=== PATIENT | male | born 1955 | race Caucasian/White ===

== ENCOUNTER 2019-01-18 21:06 | Observation (INO) | payer BC ==
[~2019-01-18] VITALS: Ht 172.7 cm; Wt 84.5 kg
--- NOTE | ~2019-01-18 | HEMODYNAMI ---
PATIENT:ANDREA NGUYEN MEDICAL RECORD: [id number] : 53 LOCATION:[facility] D.[facility] ADMISSION DATE: 01/18/19 Generatedon:01/19/20198:35 Patient name: ANDREA NGUYEN Patient #: [id number] SSN: DO B: 1955 Date of study: 01/19/2019 Page: Of Hemodynamic Procedure Report Patient Data Patient Demographics Procedure consent was obtained First Name: ANDREA Gender: Male Last Name: WENDY : 1955 Patient #: [id number] Age: 63 year(s) Race: Unknown Additional ID: [id number] Contact details [address]: [address] [place] [address] State: [place] City: [place] Zip code: [address] Admission Admission Data Admission Date: 01/18/2019 Admission Time: 22:42 Room #: [facility] Procedure Procedure Types Cath Procedure Diagnostic Procedure LHC LH w/Coronaries PCI Procedure Coronary Stent Coronary Stent Initial x2 Procedure Description Procedure Date Procedure Date: 01/19/2019 Procedure Start Time: 8:14 Procedure End Time: 8:31 Procedure Staff Name Function Neal Rich MD Performing Physician Justin Mcdowell RN Nurse Taryn Villa RT Scrub Mike Hwang RT Monitor Procedure Data Cath Procedure Fluoroscopy Diagnostic fluoroscopy Total fluoroscopy Time: 3.5 time: 3.5 min min Diagnostic fluoroscopy Total fluoroscopy dose: 553 dose: 553 mGy mGy Contrast Material Contrast Material Type Amount (ml) Isovue 300 72 Entry Location Entry Primary Successful Side Size Upsize Upsize Entry Closure Succes sful Closure Location (Fr) 1 (Fr) 2 (Fr) Remarks Device Remarks Femoral Right 6 Fr Exoseal artery Short Estimated blood loss: 10 ml Diagnostic catheters Device Type Used For End Catheter Placement MULTIPACK Pigtail 5 Fr Procedure catheter MULTIPACK JL 4.0 5Fr Procedure catheter MULTIPACK 3DRC 5Fr Procedure catheter Procedure Complications No complications Procedure Medications Medication Administration Route Dosage Benadryl I.V. 50 mg Oxygen etCO2 Nasal cannula 2 l/min Lidocaine 2% added to field 20 Heparin Flush Bag added to field 2 bags (1000units/500ml NS) 0.9% NaCl I.V. 100 ml/hr Versed I.V. 1 mg Fentanyl I.V. 50 mcg Versed I.V. 1 mg Fentanyl I.V. 50 mcg Heparin Bolus I.V. 4000 units Integrilin (Bolus I.V. 7.9 ml 2mg/ml) Plavix P.O. 75 mg Hemodynamics Rest Heart Rate: 84 (bpm) Snapshots Pre Cath Intra NCS Post Cath Vital Signs Time Heart Resp SPO2 etCO2 NIBP (mmHg) Rhythm Pain Sedation Rate (ipm) (%) (mmHg) Status Level (bpm) 8:10:18 81 16 99 32.7 148/95(129) NSR 0 (11) 10(A) , No pain 8:14:30 89 11 92 0 114/86(108) NSR 0 (11) 10(A) , No pain 8:18:35 89 12 95 28.8 132/95(119) NSR 0 (11) 9(A) , No pain 8:22:47 90 11 93 15.2 137/91(124) NSR 0 (11) 9(A) , No pain 8:28:05 97 12 92 18.2 139/85(126) NSR 0 (11) 9(A) , No pain 8:32:21 88 15 98 20.5 156/105(131) NSR 0 (11) 10(A) , No pain Medications Time Medication Route Dose Verified Delivered Reason Notes Effectiveness by by 8:09:47 Benadryl I.V. 50 mg Neal Buffie used for Hilario Mcdowell RN procedure 8:10:59 Oxygen etCO2 2 Neal Buffie used for Nasal l/min Hilario Mcdowell RN procedure cannula 8:11:07 Lidocaine 2% added 20ml Neal Neal for local to vial Hilario Rich MD anesthetic field 8:11:13 Heparin Flush added 2 Neal Neal used for Bag to bags Hilario Rich MD procedure (1000units/500ml field NS) 8:11:21 0.9% NaCl I.V. 100 Neal Buffie Per physician ml/hr Hilario Mcdowell RN 8:13:20 Versed I.V. 1 mg Nealjohn Allenie for sedation Hilario Mcdowell RN 8:13:26 Fentanyl I.V. 50 Neal Anderson for sedation mcg Hilario Mcdowell RN 8:15:51 Versed I.V. 1 mg Neal Anderson for sedation Hilario Mcdowell RN 8:15:54 Fentanyl I.V. 50 Neal Anderson for sedation mcg Hilario Mcdowell RN 8:18:14 Heparin Bolus I.V. 4000 Neal Anderson for verifi ed units Hilario Mcdowell RN anticoagulation with dr rich 8:20:09 Integrilin I.V. 7.9 Neal Anderson for Wasted (Bolus 2mg/ml) ml Hilario Mcdowell RN antiplatelet 2.1 ml therapy of vial 8:30:35 Plavix P.O. 75 mg Neal Anderson for Hilario Mcdowell RN antiplatelet therapy Procedure Log Time Note 7:44:34 Signed procedure consent form obtained from patient. 7:44:35 Diagnostic Cath status Elective 7:44:36 Time tracking: Regular hours (M-F 7:00 - 5:00) 7:44:40 Plan of Care:Hemodynamics will remain stable., Cardiac rhythm will remain stable., Comfort level will be maintained., Respiratory function will remain adequate., Patient/ family verbilizes understanding of procedure., Procedure tolerated without complication., Recovers from procedure without complications.. 7:44:48 Justin Mcdowell RN sent for patient. Start room use. 8:00:20 Patient received from CVICU to CCL 1 Alert and oriented. Tansferred to table in Supine position. 8:00:21 Warm blankets applied, and rocio hugger turned on for patient comfort. 8:00:21 Correct patient and procedure confirmed by team. 8:00:22 ECG and BP/O2 sat monitors applied to patient. 8:09:06 Vital chart was started 8:09:47 Benadryl 50 mg I.V. was administered by Justin Mcdowell RN; used for procedure; 8:10:02 Baseline sample Acquired. 8:10:02 Full Disclosure recording started 8:10:06 Rhythm: sinus rhythm 8:10:13 H&P Date Dictated: 01/18/2019 Within 30 days and on chart., H&P Addendum completed by physician on day of procedure. (MUST COMPLETE FOR ALL OUTPATIENTS). 8:10:14 Pre-procedure instructions explained to patient. 8:10:14 Pre-op teaching completed and patient verbalized understanding. 8:10:37 Family in patients room. 8:10:39 Patient NPO since Midnight. 8:10:41 Is the patient allergic to Iodine/contrast media? No. 8:10:50 Is patient on blood thinner?Yes 8:10:53 ACC The patient was administered the following blood thiners within the last 24 hours: ACCPlavix 8:10:55 Patient diabetic? No. 8:10:58 Previous problem with sedation/anesthesia? No ? 8:10:59 Oxygen 2 l/min etCO2 Nasal cannula was administered by Justin Mcdowell RN; used for procedure; 8:10:59 Snore? Yes 8:11:00 Sleep apnea? No 8:11:01 Deviated septum? No 8:11:01 Opens mouth fully? Yes 8:11:02 Sticks out tongue? Yes 8:11:04 Airway obstruction? No ? 8:11:06 Dentures? No ? 8:11:07 Lidocaine 2% 20ml vial added to field was administered by Neal Rich MD; for local anesthetic; 8:11:09 Pre procedure: right dorsailis pedis pulse 1+ Palpable, but thready & weak; easily obliterated 8:11:12 Modified Christofer's test Ulnar < 7 seconds 8:11:13 Heparin Flush Bag (1000units/500ml NS) 2 bags added to field was administered by Neal Rich MD; used for procedure; 8:11:14 Patient pain scale 0/10 ?. 8:11:21 0.9% NaCl 100 ml/hr I.V. was administered by Justin Mcdowell RN; Per physician; 8:11:21 IV patent on arrival in left antecubital with 0.9% NaCl at [facility]. 8:11:23 Lab results completed and on chart. 8:11:28 Right groin area was prepped with chlora-prep and draped in sterile fashion 8:11:34 Alarms reviewed by R. N. 8:11:35 Sharps counted by scrub and verified by R.N. 8:12:06 --------ALL STOP TIME OUT------ 8:12:06 Final Timeout: patient, procedure, and site verified with staff and physician. All members of the team are in agreement. 8:12:08 Right groin site verified by team. 8:12:13 Fire Safety Assessment: A--An alcohol-based skin anteseptic being used preoperatively., C--Open oxygen or nitrous oxide is being used., D--An ESU, laser, or fiber-optic light is being used. 8:12:16 Physical assessment completed. ASA score P 2 - A patient with mild systemic disease as per Neal Rich MD. 8:12:19 Sedation plan: IV Moderate Sedation Medication:Versed, Fentanyl 8:13:20 Versed 1 mg I.V. was administered by Justin Mcdowell RN; for sedation; 8:13:26 Fentanyl 50 mcg I.V. was administered by Justin Mcdowell RN; for sedation; 8:14:35 Use device set Femoral Dx 8:14:40 Procedure started. 8:14:53 Local anesthetic to right femoral artery with Lidocaine 2% by Neal Rich MD.INITIAL ACCESS ONLY 8:15:04 A 6 Fr Short sheath was inserted into the Right Femoral artery 8:15:08 ACIST Syringe (28159) opened to sterile field. 8:15:09 Bag Decanter (2002S) opened to sterile field. 8:15:10 Medline Cath Pack ([id number]) opened to sterile field. 8:15:12 ACIST Hand Control (71525) opened to sterile field. 8:15:13 ACIST Manifold (74863) opened to sterile field. 8:15:20 Tegaderm 4 x 4 (1626W) opened to sterile field. 8:15:22 DIAGNOSTIC Multipack 5Fr catheter set (XM9928) opened to sterile field. 8:15:25 DIAGNOSTIC WIRE .035 260cm J wire (386155) opened to sterile field. 8:15:33 SHEATH 6FR [place] (ETP073) opened to sterile field. 8:15:42 A MULTIPACK Pigtail 5 Fr catheter was advanced over the wire and used for Procedure. 8:15:50 LV angiography performed. 8:15:51 Versed 1 mg I.V. was administered by Justin Mcdowell RN; for sedation; 8:15:51 LV gram done using BRISCOE 8:15:54 Fentanyl 50 mcg I.V. was administered by Justin Mcdowell RN; for sedation; 8:15:56 EF : 50 % 8:16:01 Injector settings: Ml/sec: 10, Volume: 20, 8:16:10 A MULTIPACK JL 4.0 5Fr catheter was advanced over the wire and used for Procedure. 8:16:21 LCA angiography performed. 8:16:32 Catheter removed. 8:17:18 A MULTIPACK 3DRC 5Fr catheter was advanced over the wire and used for Procedure. 8:17:22 RCA angiography performed. 8:17:24 Catheter removed. 8:17:53 Use device set HILARIO PCI 8:17:57 GUIDE 6FR AR 2.0 catheter ([id number]) opened to sterile field. 8:18:00 INFLATOR Merit BasixCompak (XO2813) opened to sterile field. 8:18:04 CHOICE PT Extra Support 182cm wire ([id number]) opened to sterile field. 8:18:14 Heparin Bolus 4000 units I.V. was administered by Justin Mcdowell RN; for anticoagulation; verified with dr rich 8:18:50 6 Fr AR 2 guide catheter was inserted over the wire 8:19:23 CPTXS wire advanced. 8:20:09 Integrilin (Bolus 2mg/ml) 7.9 ml I.V. was administered by Justin Mcdowell RN; for antiplatelet therapy; Wasted 2.1 ml of vial 8:20:09 Wire advanced across lesion. 8:21:10 Inflate balloon Inflation number: 1 A EUPHORA 2.5 x 20 Balloon ([id number]) was prepped and advanced across the Mid RCA, then inflated to 17 AGUSTIN for 0:10 (min:sec). 8:21:22 Inflation number: 2 The EUPHORA 2.5 x 20 Balloon ([id number]) was reinflated across the Mid RCA, to 17 AGUSTIN for 0:10 (min:sec). 8:22:33 Balloon removed over the wire. 8:23:06 Place stent Inflation Number: 3 A INTEGRITY RX 2.75 x 26 stent ([id number]) was prepped and advanced across the Mid RCA. The stent was deployed at 17 AGUSTIN for 0:10 (min:sec). 8:23:24 Stent catheter was removed intact over wire. 8:23:25 Wire removed. 8:23:26 Guide catheter removed. 8:24:37 GUIDE 6FR XBC 3.5 ([id number]) opened to sterile field. 8:24:46 6 Fr XBC guide catheter was inserted over the wire 8:24:53 CPTXS wire advanced. 8:25:47 Wire advanced across lesion. 8:27:11 Place stent Inflation Number: 1 A INTEGRITY RX 3.5 x 12 stent ([id number]) was prepped and advanced across the Prox CX. The stent was deployed at 17 AGUSTIN for 0:10 (min:sec). 8:27:25 EXOSEAL 6Fr (EX600) opened to sterile field. 8:27:28 Stent catheter was removed intact over wire. 8:27:29 Wire removed. 8:27:30 Guide catheter removed. 8::41 Sheath removed intact; hemostasis achieved with Exoseal to the Right Femoral artery. 8:27:43 Procedure ended.(Physican Out) 8:29:31 Fluoroscopy time 03.50 minutes. 8:29:35 Fluoroscopy dose: 553 mGy 8:29:35 Flurop Dose total: 553 8:29:39 Contrast amount:Isovue 300 72ml. 8:29:41 Sharps counted by scrub and verified by R.N. 8:29:43 Insertion/operative site no bleeding no hematoma. 8:29:46 Post-op/insertion site Right Femoral artery dressed using a 4 x 4 and Tegaderm. 8:29:48 Post Procedure Pulses reassessed and unchanged 8:29:51 Post-procedure physical assessment completed. ASA score P 2 - A patient with mild systemic disease as per Neal Rich MD. 8:29:54 Post procedure rhythm: unchanged. 8:29:57 Estimated blood loss: 10 ml 8:29:59 Post procedure instruction explained to patient.Patient verbalizes understanding. 8:29:59 Patient needs reinforcement of post procedure teaching. 8:30:07 Procedure type changed to Cath procedure, Diagnostic procedure, LHC, LHC w/Coronaries, PCI procedure, Coronary Stent, Coronary Stent Initial x2 8:30:09 Procedure and supply charges have been captured, reviewed, submitted and are correct. 8:30:11 Procedure Complication : No complications 8:30:35 Plavix 75 mg P.O. was administered by Justin Mcdowell RN; for antiplatelet therapy; 8:31:13 Vital chart was stopped 8:31:14 See physician's report for complete and final results. 8:31:25 Report given to CVICU. 8:31:28 Patient transfered to CVICU with Bed. 8:31:31 Procedure ended. 8:31:31 Full Disclosure recording stopped 8:34:36 End room use (Document Last) Intervention Summary Intervention Notes Time ActionType Lesion and Equipment Action# Pressure Duration Attributes Used 8:21:10 Inflate Mid RCA EUPHORA 2.5 1 17 00:10 balloon x 20 Balloon ([id number]) 8:21:22 Reinflate Mid RCA EUPHORA 2.5 2 17 00:10 balloon x 20 Balloon ([id number]) 8:23:06 Place stent Mid RCA INTEGRITY RX 3 17 00:10 2.75 x 26 stent ([id number]) 8:27:11 Place stent Prox CX INTEGRITY RX 1 17 00:10 3.5 x 12 stent ([id number]) Device Usage Item Name Manufacture Quantity Catalog Number Hospital Part Current Mini [facility] Lot# / Charge Number Stock Stock Serial# Code ACIST Acist 1 99013 256054 455155 186254 20 Syringe Medical (79554) Systems Inc Bag Decanter Microtek 1 2002S 694412 91136 931680 5 (2001S) Medical Inc. Medline Cath Medline 1 [id number] 106727 77525 618765 5 Pack ([id number]) ACIST Hand Acist 1 23268 833271 942572 881291 5 Control Medical (75153) Systems Inc ACIST Acist 1 00535 279170 068327 677544 5 Manifold Medical (46919) Systems Inc Tegaderm 4 x 3M 1 1626W 032861 272274 423189 5 4 (1626W) DIAGNOSTIC Cardinal 1 WH5045 593363 88447 943718 30 Multipack Health 5Fr catheter set (IR7913) DIAGNOSTIC [facility] 1 957244 576511 547425 411625 30 WIRE .035 260cm J wire (821488) SHEATH 6FR Terumo 1 KQO037 416871 976756 783210 40 [place] (DON513) MULTIPACK Cardinal 1 747238 5 Pigtail 5 Fr Health catheter MULTIPACK JL Cardinal 1 588166 5 4.0 5Fr Health catheter MULTIPACK Cardinal 1 351359 5 3DRC 5Fr Health catheter GUIDE 6FR AR Medtronic 1 [id number] 975885 77949 199272 1 2.0 catheter (MT7WB24) INFLATOR [facility] 1 VF4889 768853 010744 011564 15 [facility] Medical BasixCompak (CK6453) CHOICE PT [place] 1 [id number] 276462 143215 141359 5 Extra Scientific Support 182cm wire ([id number]) EUPHORA 2.5 Medtronic 1 [id number] 086535 710854 194647 5 [id number] x 20 Balloon (NVB1037T) INTEGRITY RX Medtronic 1 [id number] 272733 954908 774474 5 [id number] 2.75 x 26 stent ([id number]) GUIDE 6FR Cardinal 1 [id number] 079279 38032 022892 5 XBC 3.5 Health (03102233) INTEGRITY RX Medtronic 1 [id number] 304178 261599 369247 5 [id number] 3.5 x 12 stent ([id number]) EXOSEAL 6Fr Cardinal 1 EX600 232240 186358 010507 10 (EX600) Health Signature Audit [place] Stage Time Signature Unsigned Intra-Procedure 01/19/2019 Mike Hwang 8:35:31 AM RT(R) Signatures Monitor : Mike Hwang RT Signature : Date : Time : [address] [address]
[2019-01-18] MEDS ORDERED: ASPIRIN EC81 M1 (21:09)
[2019-01-18 21:57] LABS: BASOPHILS 0.3 % (0-2); EOSINOPHILS 0.8 % (0-7); HEMATOCRIT 41.6 % (42.0-54.0); HEMOGLOBIN 14.2 g/dL (13.5-17.5); IMMATURE GRANULOCYTES 0.3 % (0-5); LYMPHOCYTES 14.6 % (15-50); MCH 26.8 pg (26.0-34.0); MCHC 34.1 g/dL (31.0-37.0); MCV 78.5 fL (80.0-100.0); MEAN PLATELET VOLUME 10.5 fL (7.4-10.4); MONOCYTES 7.1 % (2-11); NEUTROPHILS 76.9 % (40-80); PLATELET COUNT 207 10x3/uL (130-400); RDW 13.8 % (11.5-14.5); WBC 7.2 10x3/uL (4.8-10.8)
[2019-01-18 22:01] LABS: INR 1.09 (0.85-1.17); PROTIME 13.6 SECONDS (11.6-15.0)
[2019-01-18 22:02] LABS: APTT 46.7 SECONDS (22.8-39.4)
[2019-01-18 22:03] VITALS: BP 118/84
[2019-01-18 22:08] LABS: ALBUMIN 3.7 g/dL (3.4-5.0); ALKALINE PHOSPHATASE 92 U/L (46-116); ALT (SGPT) 43 U/L (10-68); BILIRUBIN - TOTAL 0.27 mg/dL (0.2-1.3); CALC OSMOLALITY 275 mosm/kg (275-300); CALCIUM 8.4 mg/dL (8.5-10.1); CARBON DIOXIDE 25.4 mmol/L (21.0-32.0); CHLORIDE - SERUM 102 mmol/L (98-107); CREATININE - SERUM 1.1 mg/dL (0.6-1.3); GLUCOSE 121 mg/dL (74-106); POTASSIUM - SERUM 4.1 mmol/L (3.5-5.1); PROTEIN - SERUM 7.1 g/dL (6.4-8.2); SODIUM 137 mmol/L (136-145); UREA NITROGEN 15 mg/dL (7-18); eGFR NON AFRICAN AMERICAN 71 mL/min (90-120)
[2019-01-18 22:26] LABS: CREATINE KINASE 327 UL (21-232)
[2019-01-18 22:29] LABS: TROPONIN-I 3.009 ng/mL (0.000-0.060)
--- NOTE | 2019-01-18 22:31 | NUR ---
DR SUAREZ STATES TO RE-START HEPARIN AT 1000 U/HOUR- PER PROTOCOL
[2019-01-18 23:30] VITALS: BP 132/82
--- NOTE | 2019-01-18 23:30 | NUR ---
PT ARRIVED VIA STRETCHER. ICU MONITORS ESTABLISHED. VSS. NO SIGNS OF ACUTE DISTRESS NOTED. ASSESSMENT DONE SEE FLOW SHEET. WILL CONTINUE TO MONITOR.
[2019-01-18 23:40] VITALS: BP 132/82; Ht 172.7 cm; Wt 84.5 kg
[2019-01-18] MEDS ORDERED: LIPITOR10 MG PO (23:57)
[2019-01-19] VITALS (34 sets, daily range): BP systolic 95–138; BP diastolic 51–82
--- NOTE | 2019-01-19 02:45 | NUR ---
0000 PT NPO AT THIS TIME. 0100 PT IN BED RESTING VSS. PT VERBALIZES NO COMPLAINTS. 0245 REASSESSMENT DONE SEE FLOW SHEET. VSS. NO SIGNS OF ACUTE DISTRESS.
[2019-01-19 04:59] LABS: APTT 49.3 SECONDS (22.8-39.4); INR 1.1 (0.85-1.17); PROTIME 13.7 SECONDS (11.6-15.0)
--- NOTE | 2019-01-19 05:00 | NUR ---
FAMILY AT BEDSIDE. PARTIAL BED BATH GIVEN BY FAMILY. VSS. PT VERBALIZES ANXIETY FOR PROCEDURE. QUESTIONS ANSWERED TEACHING PROVIDED.
--- NOTE | 2019-01-19 07:59 | NUR ---
PT OFF UNIT TO CATHLAB. FAMILY NOTIFIED IN WAITING THAT PATIENT HAS GONE BACK.
[2019-01-19 08:21] LABS: ANION GAP 16.4 mmol/L (8-16); CALCIUM 8.7 mg/dL (8.5-10.1); CARBON DIOXIDE 25.8 mmol/L (21.0-32.0); POTASSIUM - SERUM 4.2 mmol/L (3.5-5.1)
[2019-01-19 08:22] LABS: CREATININE - SERUM 1.6 mg/dL (0.6-1.3)
[2019-01-19 08:32] LABS: BASOPHILS 0.2 % (0-2); EOSINOPHILS 1.7 % (0-7); HEMATOCRIT 41.5 % (42.0-54.0); HEMOGLOBIN 13.9 g/dL (13.5-17.5); IMMATURE GRANULOCYTES 0.2 % (0-5); MCH 26.7 pg (26.0-34.0); MCHC 33.5 g/dL (31.0-37.0); MCV 79.7 fL (80.0-100.0); MEAN PLATELET VOLUME 11.2 fL (7.4-10.4); MONOCYTES 11.3 % (2-11); NEUTROPHILS 58.6 % (40-80); PLATELET COUNT 193 10x3/uL (130-400); RBC 5.21 10x6/uL (4.20-6.10); RDW 14.1 % (11.5-14.5); WBC 5.8 10x3/uL (4.8-10.8)
--- NOTE | 2019-01-19 08:52 | NUR ---
PT RETURNED TO ROOM FROM CATHLAB AND PLACED ON BEDSIDE MONITORING. OPENS EYES AND FOLLOWS COMMANDS.
--- NOTE | 2019-01-19 13:00 | NUR ---
PT GROIN SITE CHECKED AND DISTAL PULSES. ALLOWED TO SIT UP FOR EATING LUNCH. DENIES PAIN.
--- NOTE | 2019-01-19 19:40 | NUR ---
REC'D TO CARE, INVESTMENT CONSULTANT PER FLOWSHEET. R GROIN SITE C/D/I, NO DRAINAGE/SWELLING NOTED. VSS. PT UP TO BR INDEPENDENTLY.
--- NOTE | 2019-01-19 21:07 | NUR ---
PT AT BS, UPDATE GIVEN AND QUESTIONS ANSWERED. FRESH ICE WATER PROVIDED.
--- NOTE | 2019-01-19 23:15 | NUR ---
REASSESSMENT PER FLOWSHEET, NO ACUTE CHANGES. PT DENIES NEEDS. VSS.
[2019-01-20] VITALS (11 sets, daily range): BP systolic 98–124; BP diastolic 58–99
--- NOTE | 2019-01-20 01:19 | NUR ---
PT RESTING QUIETLY, NO SIGN OF DISTRESS. VSS. C/L IN REACH.
--- NOTE | 2019-01-20 03:42 | NUR ---
REASSESSMENT PER FLOWSHEET, NO ACUTE CHANGES. VSS. R GROIN SITE C/D/I. PT DENIES NEEDS.
--- NOTE | 2019-01-20 05:00 | NUR ---
PT AWAKE, VSS. AT BS.
--- NOTE | 2019-01-20 08:01 | NUR ---
PT RECEIVED ALERT AND ORIENTED. SHIFT ASSESSMENT COMPLETE. SAYS HE IS READY TO GO HOME. BREAKFAST TRAY HAS BEEN PROVIDED. DENIES ANY ADDITIONAL NEEDS.
[2019-01-20] MEDS ORDERED: TOPROL XL50 MG PO (10:39)
[2019-01-20] MEDS ORDERED: PLAVIX75 MG PO (10:41)
--- NOTE | 2019-01-20 11:18 | HP ---
PATIENT: ANDREA NGUYEN MEDICAL RECORD: [id number] ACCOUNT: [id number] LOCATION:[facility] D.CV05 : 53 ADMISSION DATE: 01/18/19 PCP: KESHA ALEX DO HISTORY AND PHYSICAL EXAMINATION DIAGNOSES: 1. Non-Q-wave myocardial infarction. 2. Coronary artery disease. 3. Hyperlipidemia. HISTORY OF PRESENT ILLNESS: This is a gentleman who presented to [facility] after [place] turning over and then began having chest pain in the cold water. Initially, he had ST elevation. I gave him heparin, aspirin. The ST elevation resolved. His troponin did go up to 10. He is currently pain free. He has had no dysrhythmias. He has no history of ischemic heart disease, only history of hyperlipidemia, for which he is on atorvastatin. PHYSICAL EXAMINATION: GENERAL APPEARANCE: Well-nourished, well-developed, appears stated age. Level of distress, comfortable. PSYCHIATRIC: Mental status, alert, normal affect. Orientation, oriented to time, place and person. EYES: Lids and conjunctiva, noninjected. No discharge, no pallor. ENT: Lips, teeth, gums, normal dentition. Oropharynx, no cyanosis, no pallor. NECK: Carotid arteries, bilateral normal upstroke, no bruits, no thrills. JUGULAR VEINS: No jugular venous pressure or distention. CERVICAL LYMPH NODES: Nontender, nonenlarged. THYROID: Not enlarged. Nontender. No nodules. LUNGS: Respiratory effort, unlabored. CHEST: Normal curvature. No thoracic deformity. No chest wall tenderness. Percussion, resonant. Auscultation, clear. No wheezes, no rales, no rhonchi. CARDIOVASCULAR: Precordial exam, nondisplaced. No heaves or pericardial thrills. Rate and rhythm, regular. Heart sounds, normal S1, normal S2. No S3, no gallop, no rub. Systolic murmur, not heard. Diastolic murmur, not heard. EXTREMITIES: No cyanosis, no edema. Peripheral pulses, full and equal in all extremities, except as noted. No bruits appreciated. ABDOMEN: Soft, nondistended. Normal aorta. No bruit. Nontender. No masses. Liver, nontender, no hepatomegaly. Spleen, nontender, no splenomegaly. MUSCULOSKELETAL: No joint tenderness. No joint swelling. No erythema. NEUROLOGICAL: Normal gait, normal strength, normal tone. SKIN: Warm and dry. OVERALL IMPRESSION: Non-Q-wave myocardial infarction. We will proceed with coronary angiography. Further care depends upon the findings of the angiography. TRANSINT:[id number] Voice Confirmation ID: [id number] DOCUMENT ID: [id number] HISTORY AND PHYSICAL [id number] ANDREA NGUYEN JEFFREY MD at 1118 CC: [id number] DICTATION DATE: 01/19/19805 MATTRESS SPECIALIST: 01/19/19 0834 ADM IN [facility] [address] [id number]
--- NOTE | 2019-01-20 11:19 | OP ---
PATIENT NAME: ANDREA NGUYEN MEDICAL RECORD: [id number] :53 [facility] ADMISSION DATE:01/18/19 SURGEON: RIRI DE LA TORRE MD DATE OF OPERATION: 01/19/2019 DATE OF SERVICE: 01/19/2019 PROCEDURES: 1. PTCA stent RCA. 2. PTCA stent left circumflex. 3. Left heart catheterization. 4. Selective coronary angiography. 5. Left ventriculogram. INDICATION: Myocardial infarction. PROCEDURE IN DETAIL: After informed consent was obtained and after a detailed description of risks, benefits as well as alternative therapies, the patient elected to proceed with angiogram and angioplasty. The right femoral area was prepped and draped in normal sterile fashion. Right femoral artery was cannulated via modified Seldinger technique with placement of 6-Botswan[place] sheath. All catheters exchanged through this sheath. FINDINGS: The left ventriculogram was performed in standard 30-degree BRISCOE view, reveals mild global hypokinesis of the inferior segments. Ejection fraction preserved at 50%. SELECTIVE CORONARY ANGIOGRAPHY: 1. Left main is with no significant angiographic disease. 2. Left anterior descending has 70% to 75% stenosis in the proximal vessel. 3. The right coronary has 99% stenosis with ENRIQUE 1 flow in the mid vessel. 4. The left circumflex has 95% stenosis in the proximal vessel. PTCA STENT OF THE RCA: The stent used was a 2.75 x 26 mm Integrity. Result was 0% residual stenosis. PTCA STENT OF THE LEFT CIRCUMFLEX: The stent used was a 3.5 x 12 mm Integrity. Result was 0% residual stenosis. OVERALL IMPRESSION: Successful percutaneous transluminal coronary angioplasty stent of the circumflex and right coronary artery, both going from 95-99% initial stenosis to 0% residual. PLAN: For PTCA stent of the LAD in the future. TRANSINT:[id number] Voice Confirmation ID: [id number] DOCUMENT ID: [id number] OPERATIVE REPORT [id number] ANDREA NGUYEN JEFFREY MD at 1119 CC: [id number] DICTATION DATE: 01/19/19 0834 PUBLIC HEALTH PROFESSOR: 01/19/19 1019 [place] [address]
--- NOTE | 2019-01-20 11:33 | NUR ---
DISCHARGE TEACHING PROVIDED TO PATIENT AND . PRESCRIPTIONS PROVIDED. INSTRUCTED THAT DR DE LA TORRE CALLED AND SAID TO BE AT HOSPITAL AT 8:30 ON Saturday01/26/19 FOR CATHETERIZATION. FOLLOW UP APPOINTMENT FOR IN CLINIC REVIEWED WELL. BILATERAL AC PIV REMOVED. RIGHT PIV BLED FOR A LITTLE. PRESSURE HELD AND BLEEDING STOPPED. COVERED WITH DRESSING. PT ESCORTED TO AWAITING VEHICLE.
--- NOTE | 2019-01-21 15:29 | DS ---
PATIENT:ANDREA DIAZ :53 MEDICAL RECORD: [id number] DISCHARGE SUMMARY ADMISSION DATE: 01/18/19 DISCHARGE DATE: 01/20/19 DISCHARGE DIAGNOSES: 1. Acute inferior myocardial infarction. 2. Percutaneous transluminal coronary angioplasty and stent to the right coronary artery and left circumflex this admission. 3. Hypertension. 4. Hyperlipidemia. HOSPITAL COURSE: Mr. Diaz presents with an acute inferior myocardial infarction, underwent PTCA stent of the right coronary artery and circumflex, had an uneventful postop course. He was discharged home with the addition of aspirin, Plavix, and metoprolol to his medical regimen. He was already on atorvastatin. We will follow up on Saturday for PTCA and stent of the LAD. TRANSINT:[id number] Voice Confirmation ID: [id number] DOCUMENT ID: [id number] RIRI DE LA TORRE MD at 1529 CC: [id number] DICTATION DATE: 01/20/19 1012 DIVISION MANAGER: 01/21/19 0234 DIS IN 01/20/[id number] [place] [address]
== END 2019-01-20 11:19 | disposition home or self-care (01) ==
LOC: D.ER 21:06 → D.EDHOLD 22:42 → D.CVICU 22:42 → OBSVTIME 22:42 → D.EDHOLD 22:45 → D.CVICU 22:55
PROVIDERS: Family Medicine; ADMIT Internal Medicine Interventional Cardiology
DX: I25.119 Atherosclerotic heart disease of native coronary artery with unspecified angina pectoris (principal); I10 Essential (primary) hypertension; E78.5 Hyperlipidemia, unspecified

== ENCOUNTER 2019-01-26 08:36 | Outpatient (CLI) | payer BC ==
[~2019-01-26] VITALS: Ht 172.7 cm; Wt 81.8 kg
--- NOTE | ~2019-01-26 | HP ---
PATIENT: SOILA NGUYEN MEDICAL RECORD: [id number] ACCOUNT: [id number] LOCATION:[facility] : 53 ADMISSION DATE: 01/26/19 PCP: KESHA ALEX DO HISTORY AND PHYSICAL EXAMINATION ADMITTING DIAGNOSES: 1. Angina. 2. Coronary artery disease. 3. Recent PTCA stent left circumflex and RCA with concomitant disease of LAD. 4. Hypertension. 5. Hyperlipidemia. HISTORY OF PRESENT ILLNESS: This is a gentleman who presents with a non-Q-wave myocardial infarction, found to have 99% stenosis of his left circumflex and RCA, underwent successful PTCA stent of both those vessels and had greater than 70% stenosis in the mid LAD as well as now brought back for staged PTCA stent of the mid LAD. PHYSICAL EXAMINATION: GENERAL APPEARANCE: Well-nourished, well-developed, appears stated age. Level of distress, comfortable. PSYCHIATRIC: Mental status, alert, normal affect. Orientation, oriented to time, place and person. EYES: Lids and conjunctiva, noninjected. No discharge, no pallor. ENT: Lips, teeth, gums, normal dentition. Oropharynx, no cyanosis, no pallor. NECK: Carotid arteries, bilateral normal upstroke, no bruits, no thrills. JUGULAR VEINS: No jugular venous pressure or distention. CERVICAL LYMPH NODES: Nontender, nonenlarged. THYROID: Not enlarged. Nontender. No nodules. LUNGS: Respiratory effort, unlabored. CHEST: Normal curvature. No thoracic deformity. No chest wall tenderness. Percussion, resonant. Auscultation, clear. No wheezes, no rales, no rhonchi. CARDIOVASCULAR: Precordial exam, nondisplaced. No heaves or pericardial thrills. Rate and rhythm, regular. Heart sounds, normal S1, normal S2. No S3, no gallop, no rub. Systolic murmur, not heard. Diastolic murmur, not heard. EXTREMITIES: No cyanosis, no edema. Peripheral pulses, full and equal in all extremities, except as noted. No bruits appreciated. ABDOMEN: Soft, nondistended. Normal aorta. No bruit. Nontender. No masses. Liver, nontender, no hepatomegaly. Spleen, nontender, no splenomegaly. MUSCULOSKELETAL: No joint tenderness. No joint swelling. No erythema. NEUROLOGICAL: Normal gait, normal strength, normal tone. SKIN: Warm and dry. OVERALL IMPRESSION: Anginal symptomatology with known disease of the left anterior descending. We will proceed with transcatheter revascularization of the LAD. TRANSINT:[id number] Voice Confirmation ID: [id number] DOCUMENT ID: [id number] HISTORY AND PHYSICAL [id number] SOILA NGUYEN JEFFREY MD CC: [id number] DICTATION DATE: 01/26/19 1114 REHABILITATION SERVICES COUNSELOR: 01/26/19 1131 REG [facility] [address] [place] [id number]
--- NOTE | ~2019-01-26 | HEMODYNAMI ---
PATIENT:SOILA NGUYEN MEDICAL RECORD: [id number] : 53 LOCATION:[facility] ADMISSION DATE: 01/26/19 Generatedon:01/26/201911:42 Patient name: SOILA NGUYEN Patient #: [id number] SSN: : 1955 Date of study: 01/26/2019 Page: Of Hemodynamic Procedure Report Patient Data Patient Demographics Procedure consent was obtained First Name: SOILA Gender: Male Last Name: WENDY : 1955 [facility] Initial: RAINE Age: 63 year(s) Patient #: [id number] Race: Unknown Additional ID: [id number] Contact details [address]: [address] [place] [address] State: [place] City: [place] Zip code: [address] Past Medical History Allergies: No known allergies Admission Admission Data Admission Date: 01/26/2019 Admission Time: 8:36 Lab Results Lab Result Date: 01/26/2019 Lab Result Time: 9:20 Biochemistry Name Units Result Min Max BUN mg/dl 14 --(--*-)-- 7 18 Creatinine mg/dl 1.4 --(----)*- 0.6 1.3 CBC Name Units Result Min Max Hematocrit % 46 --(-*--)-- 42 54 Hemoglobin g/dl 15.8 --(--*-)-- 13.5 17.5 Procedure Procedure Types Cath Procedure Diagnostic Procedure FFR/IVUS Intra-Coronary IVUS Initial Sedation Charges Moderate Sedation up to 15 minutes PCI Procedure Coronary Stent Coronary Stent Initial Peripheral Cath Diagnostic Procedure Ell Tutor Peripheral Procedures Vsmef-Lqyjilx-Qnx-Off Procedure Description Procedure Date Procedure Date: 01/26/2019 Procedure Start Time: 11:19 Procedure End Time: 11:41 Procedure Staff Name Function Neal Rich MD Performing Physician Cristiano Jernigan RN Re Examiner Kian Medina RT Monitor Taryn Villa RT Scrub Justin Mcdowell RN Nurse Procedure Data Cath Procedure Fluoroscopy Diagnostic fluoroscopy Total fluoroscopy Time: 4.5 time: 4.5 min min Diagnostic fluoroscopy Total fluoroscopy dose: 359 dose: 359 mGy mGy Contrast Material Contrast Material Type Amount (ml) Isovue 300 64 Entry Location Entry Primary Successful Side Size Upsize Upsize Entry Closure Castanon ccessful Closure Location (Fr) 1 (Fr) 2 (Fr) Remarks Device Remarks Radial Right 6 Fr Mechanical artery Short Compression Estimated blood loss: 10 ml Diagnostic catheters Device Type Used For End Catheter Placement DIAGNOSTIC Aqua Procedure Berenstein 125cm 5Fr catheter ([id number]) Procedure Complications No complications Procedure Medications Medication Administration Route Dosage Oxygen etCO2 Nasal cannula 2 l/min Lidocaine 2% added to field 20 Heparin Flush Bag added to field 2 bags (1000units/500ml NS) 0.9% NaCl I.V. 100 ml/hr Radial Cocktail added to field 1 syringe (Verapomil 2mg/Nitro 400mcg/Heparin 1500units) Plavix P.O. 75 mg Versed I.V. 1 mg Fentanyl I.V. 50 mcg Versed I.V. 1 mg Fentanyl I.V. 50 mcg Heparin Bolus I.V. 4000 units Fentanyl I.V. 50 mcg Hemodynamics Rest HGB: 15.8 (g/dl) Heart Rate: 75 (bpm) Snapshots Pre Cath Intra NCS Post Cath Vital Signs Time Heart Resp SPO2 etCO2 NIBP (mmHg) Rhythm Pain Sedation Rate (ipm) (%) (mmHg) Status Level (bpm) 10:47:20 74 16 98 11.3 114/83(94) NSR 0 (11) 10(A) , No pain 10:51:28 75 13 94 37.2 119/73(96) NSR 0 (11) 10(A) , No pain 10:55:38 72 13 95 37.2 114/76(86) NSR 0 (11) 10(A) , No pain 10:59:41 73 15 97 33.4 122/85(106) NSR 0 (11) 10(A) , No pain 11:03:51 72 13 93 28.8 128/78(97) NSR 0 (11) 10(A) , No pain 11:07:59 73 14 97 12.1 108/74(87) NSR 0 (11) 10(A) , No pain 11:12:05 76 13 98 38.7 120/75(88) NSR 0 (11) 10(A) , No pain 11:16:19 76 12 100 39.4 110/67(85) NSR 0 (11) 10(A) , No pain 11:20:23 76 11 96 40.2 120/84(98) NSR 0 (11) 9(A) , No pain 11:24:33 81 12 92 42.5 107/67(88) NSR 0 (11) 9(A) , No pain 11:28:43 75 12 94 46.3 104/63(92) NSR 0 (11) 9(A) , No pain 11:32:48 77 15 94 46.3 112/69(89) NSR 0 (11) 9(A) , No pain 11:36:56 78 14 94 44.8 115/75(92) NSR 0 (11) 10(A) , No pain 11:41:00 78 10 95 44 122/85(102) NSR 0 (11) 10(A) , No pain Medications Time Medication Route Dose Verified Delivered Reason Not es Effectiveness by by 10:44:50 Plavix P.O. 75 mg Neal Anderson for Hilario Mcdowell RN antiplatelet therapy 10:45:34 Oxygen etCO2 2 l/min Neal Anderson used for Nasal Hilario Mcdowell RN procedure cannula 10:45:46 Lidocaine 2% added 20ml Neal De Jesus for local to vial Hilario Rich MD anesthetic field 10:46:01 Heparin Flush added 2 bags Neal De Jesus used for Bag to Hilario Rich MD procedure (1000units/500ml field NS) 10:46:10 0.9% NaCl I.V. 100 Neal Anderson Per physician ml/hr Hilario Mcdowell RN 11:17:51 Versed I.V. 1 mg Neal Anderson for sedation Hilario Mcdowell RN 11:17:56 Fentanyl I.V. 50 mcg Neal Allenie for sedation Hilario Mcdowell RN 11:23:46 Radial Cocktail added 1 Neal De Jesus for (Verapomil to syringe Hilario Rich MD vasodilation 2mg/Nitro field 400mcg/Heparin 1500units) 11:24:09 Versed I.V. 1 mg Neal Anderson for sedation Hilario Mcdowell RN 11:24:13 Fentanyl I.V. 50 mcg Neal Anderson for sedation Hilario Mcdowell RN 11:26:12 Heparin Bolus I.V. 4000 Neal Anderson for marbin ified units Hilario Mcdowell RN anticoagulation with dr rich 11:29:32 Fentanyl I.V. 50 mcg Neal Anderson for sedation Hilario Mcdowell RN Procedure Log Time Note 10:27:52 Signed procedure consent form obtained from patient. 10:27:53 Diagnostic Cath status Elective 10::56 Cristiano Jernigan RN sent for patient. Start room use. 10::56 Time tracking: Regular hours (M-F 7:00 - 5:00) 10:28:01 Plan of Care:Hemodynamics will remain stable., Cardiac rhythm will remain stable., Comfort level will be maintained., Respiratory function will remain adequate., Patient/ family verbilizes understanding of procedure., Procedure tolerated without complication., Recovers from procedure without complications.. 10:37:38 Patient received from Pre/Post Procedure Room to [facility] 1 Alert and oriented. Tansferred to table in Supine position. 10:37:40 Warm blankets applied, and rocio hugger turned on for patient comfort. 10:37:40 Correct patient and procedure confirmed by team. 10:37:40 ECG and BP/O2 sat monitors applied to patient. 10:37:41 Pre-procedure instructions explained to patient. 10:37:42 Pre-op teaching completed and patient verbalized understanding. 10:37:43 Family in waiting room. 10:37:44 Patient NPO since Midnight. 10:44:50 Plavix 75 mg P.O. was administered by Justin Mcdowell RN; for antiplatelet therapy; 10:45:34 Oxygen 2 l/min etCO2 Nasal cannula was administered by Justin Mcdowell RN; used for procedure; 10:45:46 Lidocaine 2% 20ml vial added to field was administered by Neal Rich MD; for local anesthetic; 10:46:01 Heparin Flush Bag (1000units/500ml NS) 2 bags added to field was administered by Neal Rich MD; used for procedure; 10:46:10 0.9% NaCl 100 ml/hr I.V. was administered by Justin Mcdowell RN; Per physician; 10:46:21 Vital chart was started 10:51:31 Baseline sample Acquired. 10:51:36 Rhythm: sinus rhythm 10:51:37 Full Disclosure recording started 10:51:41 H&P Date Dictated: 01/26/2019 New H&P dictated by physician.. 10:51:47 Patient allergic to No known allergies 10:51:49 Is the patient allergic to Iodine/contrast media? No. 10:51:51 Is patient on blood thinner?Yes 10:51:53 ACC The patient was administered the following blood thiners within the last 24 hours: ACCPlavix 10:51:56 Patient diabetic? No. 10:51:59 Previous problem with sedation/anesthesia? No ? 10:52:01 Snore? Yes 10:52:02 Sleep apnea? No 10:52:03 Deviated septum? No 10:52:04 Opens mouth fully? Yes 10:52:05 Sticks out tongue? Yes 10:52:06 Airway obstruction? No ? 10:52:08 Dentures? No ? 10:52:13 Pre procedure: right dorsailis pedis pulse Doppler 10:52:16 Pre procedure: left dorsailis pedis pulse 2+ Normal; easily identifiable; not easily obliterated 10:52:17 Modified Christofer's test Ulnar < 7 seconds 10:52:19 Patient pain scale 0/10 ?. 10:52:24 IV patent on arrival in left antecubital with 0.9% NaCl at [facility]. 10:54:54 Lab Result : Creatinine 1.4 mg/dl 10:54:54 Lab Result : BUN 14 mg/dl 10:54:54 Lab Result : Hemoglobin 15.8 g/dl 10:54:54 Lab Result : Hematocrit 46 % 10:54:56 Lab results completed and on chart. 10:54:59 Right Radial & Right Groin area was prepped with chlora-prep and draped in sterile fashion 10:55:00 Alarms reviewed by R. N. 10:55:00 Sharps counted by scrub and verified by R.N. 10:55:03 Use device set Radial Dx or PCI 10:55:04 ACIST Syringe (85951) opened to sterile field. 10:55:04 Medline Cath Pack ([id number]) opened to sterile field. 10:55:05 Bag Decanter (2002S) opened to sterile field. 10:55:05 ACIST Hand Control (21432) opened to sterile field. 10:55:06 ACIST Manifold (39792) opened to sterile field. 10:55:06 Tegaderm 4 x 4 (1626W) opened to sterile field. 10:55:07 MBrace Wrist Support ([id number]) opened to sterile field. 10:55:08 DIAGNOSTIC WIRE .035 260cm J wire (456166) opened to sterile field. 10:55:08 SHEATH 6FR Slender (20-4112) opened to sterile field. 11:00:01 Zero performed for pressure channel P1 11:13:14 Physician arrived 11:13:15 --------ALL STOP TIME OUT------ 11:13:15 Final Timeout: patient, procedure, and site verified with staff and physician. All members of the team are in agreement. 11:13:16 Right Radial & Right Groin site verified by team. 11:13:19 Fire Safety Assessment: A--An alcohol-based skin anteseptic being used preoperatively., C--Open oxygen or nitrous oxide is being used., D--An ESU, laser, or fiber-optic light is being used. 11:13:22 Physical assessment completed. ASA score P 2 - A patient with mild systemic disease as per Neal Rich MD. 11:13:28 Sedation plan: IV Moderate Sedation Medication:Versed, Fentanyl 11:17:51 Versed 1 mg I.V. was administered by Justin Mcdowell RN; for sedation; 11:17:56 Fentanyl 50 mcg I.V. was administered by Justin Mcdowell RN; for sedation; 11:19:34 Procedure started. 11:19:38 Local anesthetic to right radial artery with Lidocaine 2% by Neal Rich MD.INITIAL ACCESS ONLY 11:20:58 A 6 Fr Short sheath was inserted into the Right Radial artery 11:22:48 A DIAGNOSTIC Aqua Berenstein 125cm 5Fr catheter ([id number]) was advanced over the wire and used for Procedure. 11:23:04 Right leg runoff performed. 11:23:46 Radial Cocktail (Verapomil 2mg/Nitro 400mcg/Heparin 1500units) 1 syringe added to field was administered by Neal Rich MD; for vasodilation; 11:24:09 Versed 1 mg I.V. was administered by Justin Mcdowell RN; for sedation; 11:24:13 Fentanyl 50 mcg I.V. was administered by Justin Mcdowell RN; for sedation; 11:24:14 Left leg runoff performed. 11:24:34 Catheter exchanged over wire. 11:24:43 GUIDE 6FR XBLAD 3.5 catheter ([id number]) opened to sterile field. 11:24:53 CHOICE PT Extra Support 182cm wire ([id number]) opened to sterile field. 11:24:53 INFLATOR Merit BasixCompak (UC1235) opened to sterile field. 11:25:05 6 Fr xblad 3.5 guide catheter was inserted over the wire 11:25:10 choice pt es wire advanced. 11:26:12 Heparin Bolus 4000 units I.V. was administered by Justin Mcdowell RN; for anticoagulation; verified with dr rich 11:27:02 [place] Bill Moore'S Slough Eagleye IVUS Catheter (98943A) opened to sterile field. 11:29:09 Wire advanced across lesion. 11:29:12 IVUS catheter advanced over wire. 11:29:32 Fentanyl 50 mcg I.V. was administered by Justin Mcdowell RN; for sedation; 11:31:05 IVUS catheter removed over wire. 11:33:37 Place stent Inflation Number: 1 A INTEGRITY RX 3.0 x 22 stent ([id number]) was prepped and advanced across the Prox LAD. The stent was deployed at 13 AGUSTIN for 0:10 (min:sec). ::53 Inflation number: 2 The stent balloon was then re-inflated across the Prox LAD to 17 AGUSTIN for 0:10 (min:sec). 11:34:24 Inflation number: 3 The stent balloon was then re-inflated across the Prox LAD to 9 AGUSTIN for 0:10 (min:sec). 11:34:34 Stent catheter was removed intact over wire. 11:34:34 Wire removed. 11:34:36 Guide catheter removed. 11:34:42 TR BAND Standard ([id number]) opened to sterile field. 11:34:52 Sheath removed intact; hemostasis achieved with Mechanical Compression to the Right Radial artery. 11:34:53 Procedure ended.(Physican Out) 11:36:47 Fluoroscopy time 04.50 minutes. 11:36:56 Flurop Dose total: 359 11:36:56 Fluoroscopy dose: 359 mGy 11:37:07 Contrast amount:Isovue 300 64ml. 11:37:09 Sharps counted by scrub and verified by R.N. 11:37:12 TR band inflated with 10cc of air. 11:37:14 Insertion/operative site no bleeding no hematoma. 11:37:18 Post right radial artery:stable, soft, clean and dry 11:37:19 Post Procedure Pulses reassessed and unchanged 11:37:21 Post-procedure physical assessment completed. ASA score P 2 - A patient with mild systemic disease as per Neal Rich MD. 11:37:23 Post procedure rhythm: unchanged. 11:37:25 Estimated blood loss: 10 ml 11:37:26 Post procedure instruction explained to patient.Patient verbalizes understanding. 11:37:27 Patient needs reinforcement of post procedure teaching. 11:39:26 Procedure type changed to Cath procedure, Diagnostic procedure, FFR/IVUS, Intra-Coronary IVUS Initial, Sedation Charges, Moderate Sedation up to 15 minutes, PCI procedure, Coronary Stent, Coronary Stent Initial, Peripheral Cath Diagnostic Procedure, Ell Tutor Peripheral Procedures, Chbjv-Yaxpqif-Vmn-Off 11:40:25 Procedure and supply charges have been captured, reviewed, submitted and are correct. 11:40:41 Procedure Complication : No complications 11:40:44 Vital chart was stopped 11:40:44 See physician's report for complete and final results. 11:41:29 Report given to PCU. 11:41:31 Patient transfered to PCU with Stretcher. 11:41:33 Procedure ended. 11:41:33 Full Disclosure recording stopped 11:41:36 End room use (Document Last) Intervention Summary Intervention Notes Time ActionType Lesion and Equipment Action# Pressure Duration Attributes Used 11:33:37 Place stent Prox LAD INTEGRITY RX 1 13 00:10 3.0 x 22 stent ([id number]) 11:33:53 Reinflate Prox LAD INTEGRITY RX 2 17 00:10 stent 3.0 x 22 balloon stent ([id number]) 11:34:24 Reinflate Prox LAD INTEGRITY RX 3 9 00:10 stent 3.0 x 22 balloon stent ([id number]) Device Usage Item Name Manufacture Quantity Catalog Number Hospital Part Current Mini mal Lot# / Charge Number Stock Stock Serial# Code ACIST Acist 1 71510 611476 341951 355647 20 RoosterBi ([id number] Medline Cath Medline 1 [id number] 185069 45381 720567 5 Pack ([id number]) Bag Decanter Microtek 1 2001S 962665 09333 301846 5 (2001S) Medical Inc. ACIST Hand Acist 1 13640 462128 006930 841387 5 Control Medical (69632) Systems Inc ACIST Acist 1 56676 618585 467617 774337 5 Manifold Medical (33161) Systems Inc Tegaderm 4 x 3M 1 1626W 395597 163618 705153 5 4 (1626W) MBrace Wrist Advanced 1 140-0250-00 533875 31869 482159 5 Support Vascular (635332644) Dynamics DIAGNOSTIC [facility] [place] 1 274662 338162 407282 661559 30 WIRE .035 260cm J wire (531738) SHEATH 6FR Terumo 1 [id number] 163501 250984 130125 5 Slender (80-1060) DIAGNOSTIC Cardinal 1 [id number] 318771 285761 004250 5 BLUE HOLDINGSa Health Berenstein 125cm 5Fr catheter (SFO1330) GUIDE 6FR Cardinal 1 [id number] 034278 621110 719578 10 XBLAD 3.5 Health catheter (21769603) CHOICE PT Mcintire 1 [id number] 675589 230067 072110 5 Extra Scientific Support 182cm wire ([id number]) INFLATOR Merit 1 [id number] 073786 029270 512225 15 [facility] Medical BasixCompak (JG9860) [place] 1 13471C 440756 404432 110647 8 Bill [employer]S Slough [place] IVUS Catheter (28627U) INTEGRITY RX Medtronic 1 [id number] 012228 870345 020443 5 [id number] 3.0 x 22 stent ([id number]) TR BAND Terumo 1 [id number] 687580 480524 036714 40 Standard ([id number]) Signature Audit Flag Pond Stage Time Signature Unsigned Intra-Procedure 01/26/2019 Kian Medina 11:42:07 AM RT(R) Signatures Monitor : Kian Medina RT Signature : Date : Time : [facility] [address] [place] [address]
--- NOTE | ~2019-01-26 | OP ---
PATIENT NAME: SOILA NGUYEN MEDICAL RECORD: [id number] :53 LOCATION:D.CAT ADMISSION DATE: SURGEON: RIRI DE LA TORRE MD DATE OF OPERATION: 01/26/2019 PROCEDURES: 1. Aortofemoral runoff. 2. Abdominal aortography. INDICATIONS: Leg pain compatible with claudication and peripheral vascular disease. PROCEDURE IN DETAIL: After informed consent was obtained and after a detailed description of the risks, benefits as well as alternative therapies, the patient elected to proceed with angiogram and angioplasty. The right radial area had preexisting sheath from cardiac intervention. All catheters exchanged through this sheath. FINDINGS: Abdominal aortography was performed. The catheter was advanced for aortofemoral runoff. Abdominal aortography reveals no significant abdominal aortic disease, no dissection or aneurysm formation. RIGHT LEG: A. Iliac: The common internal and external iliacs have moderate irregularities, no flow-limiting stenosis. B. Femoral system: The common superficial and deep femoral have moderate irregularities, but no flow-limiting stenosis. C. Popliteal and infrapopliteal vessels are widely patent with good 3-vessel runoff to the foot. LEFT LEG: A. Iliac: The common internal and external iliacs have moderate irregularities, no flow-limiting stenosis. B. Femoral system: The common superficial and deep femoral have moderate irregularities, but no flow-limiting stenosis. C. Popliteal and infrapopliteal vessels are widely patent with good 3-vessel runoff to the foot. OVERALL IMPRESSION: No significant peripheral vascular disease is present. Leg pain is nonarteriovascular in etiology. TRANSINT:[id number] Voice Confirmation ID: [id number] DOCUMENT ID: [id number] RIRI DE LA TORRE MD CC: [id number] DICTATION DATE: 01/26/19 1139 ASSISTANT COACH: 01/26/19 1233 REG [facility] [address] [place] [address]
--- NOTE | ~2019-01-26 | OP ---
PATIENT NAME: SOILA NGUYEN MEDICAL RECORD: [id number] :53 LOCATION:D.CAT ADMISSION DATE: SURGEON: RIRI DE LA TORRE MD DATE OF OPERATION: 01/26/2019 PROCEDURES: 1. PTCA stent LAD. 2. Intravascular ultrasound of the LAD. 3. Selective coronary angiography. INDICATION: Angina and coronary artery disease. PROCEDURE IN DETAIL: After informed consent was obtained and after a detailed description of risks, benefits as well as alternative therapies, the patient elected to proceed with angiogram and angioplasty. The right radial area was prepped and draped in normal sterile fashion. Right radial artery was cannulated via modified Seldinger technique with placement of 6-Thai sheath. All catheters exchanged through this sheath. FINDINGS: The left anterior descending has greater than 80% stenosis throughout the proximal vessel confirmed by intravascular ultrasound. This was addressed with a 3.0 x 22 mm Integrity stent. Result was 0% residual stenosis. OVERALL IMPRESSION: Successful percutaneous transluminal coronary angioplasty stent of the left anterior descending going from 80% initial stenosis to 0% residual. TRANSINT:[id number] Voice Confirmation ID: [id number] DOCUMENT ID: [id number] RIRI DE LA TORRE MD CC: [id number] DICTATION DATE: 01/26/19 1139 SUPERVISOR ASSEMBLING: 01/26/[address] [facility] [address] [place] [id number]
[~2019-01-26 08:36] MED LIST: ASPIRIN EC81 M1; LIPITOR10 MG PO; PLAVIX75 MG PO; TOPROL XL50 MG PO
[2019-01-26 09:19] VITALS: BP 148/87; Ht 172.7 cm; Wt 81.8 kg
[2019-01-26 09:30] LABS: BASOPHILS 0.4 % (0-2); EOSINOPHILS 3.5 % (0-7); HEMOGLOBIN 15.8 g/dL (13.5-17.5); IMMATURE GRANULOCYTES 0.4 % (0-5); MCHC 34.3 g/dL (31.0-37.0); MCV 78.6 fL (80.0-100.0); MEAN PLATELET VOLUME 10.5 fL (7.4-10.4); MONOCYTES 11.2 % (2-11); NEUTROPHILS 65.5 % (40-80); RBC 5.85 10x6/uL (4.20-6.10); RDW 13.8 % (11.5-14.5); WBC 7.4 10x3/uL (4.8-10.8)
[2019-01-26 09:31] LABS: PLATELET COUNT 245 10x3/uL (130-400)
[2019-01-26 09:37] LABS: CARBON DIOXIDE 27.3 mmol/L (21.0-32.0); CREATININE - SERUM 1.4 mg/dL (0.6-1.3); POTASSIUM - SERUM 4.3 mmol/L (3.5-5.1)
--- NOTE | 2019-01-26 12:05 | NUR ---
PATIENT AWAKE, TOLERATING PO FLUIDS. FAMILY AT BEDSIDE UPDATED BY PHYSICIAN. NO C/O PAIN, NUMBNESS, OR TINGLING. RIGHT TR BAND IN PLACE, NO S/S OF BLEEDING OR HEMATOMA.
--- NOTE | 2019-01-26 12:35 | NUR ---
PATIENT AWAKE, CONTINUING TO EAT TURKEY SANDWICH. NO N/V. RIGHT TR BAND IN PLACE, NO S/S OF BLEEDING OR HEMATOMA. NO C/O PAIN, NUMBNESS, OR TINGLING.
--- NOTE | 2019-01-26 13:05 | NUR ---
PATIENT AWAKE, VSS ON ROOM AIR. RIGHT TR BAND IN PLACE, NO S/S OF BLEEDING OR HEMATOMA. NO C/O PAIN, NUMBNESS, OR TINGLING.
--- NOTE | 2019-01-26 13:35 | NUR ---
PATIENT RESTING, FAMILY AT BEDSIDE. VSS ON ROOM AIR. RIGHT TR BAND IN PLACE, NO S/S OF BLEEDING OR HEMATOMA. NO C/O PAIN, NUMBNESS, OR TINGILNG.
--- NOTE | 2019-01-26 14:05 | NUR ---
PATIENT INTERMITTENTLY RESTING, VSS ON ROOM AIR. RIGHT TR BAND IN PLACE. NO C/O PAIN, NUMBNESS, OR TINGLING.
--- NOTE | 2019-01-26 14:35 | NUR ---
BEGIN AIR REMOVAL PROTOCOL FOR TR BAND, NO S/S OF BLEEDING OR HEMATOMA. VSS ON ROOM AIR.
--- NOTE | 2019-01-26 15:05 | NUR ---
FOLLOWING AIR REMOVAL PROTOCOL, 3CC OF AIR REMOVED FROM RIGHT TR BAND, NO S/S OF BLEEDING OR HEMATOMA. NO C/O PAIN, NUMBNESS, OR TINGLING. VSS ON ROOM AIR.
--- NOTE | 2019-01-26 15:35 | NUR ---
REMAINING AIR REMOVED FROM TR BAND, NO S/S OF BLEEDING OR HEMATOMA. IV REMOVED. VSS ON ROOM AIR. EDUCATION REGARDING DISCHARGE INSTRUCTIONS GIVEN TO PATIENT AND FAMILY, PATIENT VOICED UNDERSTANDING.
--- NOTE | 2019-01-26 15:45 | NUR ---
PATIENT TRANSPORTED VIA WHEELCHAIR TO CAR WITH FAMILY DRIVING, ALL BELONGINGS WITH PATIENT.
== END 2019-01-26 15:45 ==
LOC: D.CATH 08:36
PROVIDERS: ATTEND Internal Medicine Interventional Cardiology
DX: I25.119 Atherosclerotic heart disease of native coronary artery with unspecified angina pectoris (principal); M79.606 Pain in leg, unspecified; Z01.812 Encounter for preprocedural laboratory examination